=== PATIENT | male | born 1995 | race Two or more races ===

== ENCOUNTER 2018-01-24 17:52 | Emergency (ER) | payer SELFPAY ==
[~2018-01-24] VITALS: Ht 175.3 cm; Wt 109.0 kg
[2018-01-24 18:03] VITALS: BP 126/67
== END 2018-01-24 18:58 | disposition home or self-care (01) ==
LOC: ER 17:52
DX: J32.9 Chronic sinusitis, unspecified (principal); R09.89 Other specified symptoms and signs involving the circulatory and respiratory systems; F12.10 Cannabis abuse, uncomplicated
CPT/HCPCS: 99283